=== PATIENT | male | born 1970 | race Caucasian/White ===

== ENCOUNTER 2023-07-29 14:39 | Outpatient (OUT) | payer MEDICAID, SELFPAY ==
[2023-07-29 15:12] LABS: Eosinophils Absolute Auto 0.2 10^3/uL (0.0-0.7); Eosinophils Percent Auto 3.6 % (0.9-7.0); Hematocrit 44.3 % (42.0-54.0); Hemoglobin 15.6 g/dL (14.0-18.0); Lymphocytes Absolute Auto 1.3 10^3/uL (1.2-3.8); Lymphocytes Percent Auto 32.1 % (20.5-60.0); Mean Corpuscular HGB Conc 35.2 g/dL (29.9-35.2); Mean Corpuscular Hemoglobin 34.5 pg (25.9-34.0); Mean Platelet Volume 10.2 fL (9.5-13.5); Monocytes Absolute Auto 0.3 10^3/uL (0.3-0.8); Monocytes Percent Auto 6.2 % (1.7-12.0); Neutrophils Absolute Auto 2.4 10^3/uL (1.4-6.5); Neutrophils Percent Auto 57.1 % (43.0-75.0); Platelet Count 167 10^3/uL (150-450); Red Blood Count 4.52 10^6/uL (4.70-6.10); Red Cell Distribution Width 11.9 % (11.0-15.0); White Blood Count 4.2 10^3/uL (4.0-11.0)
[2023-07-29 15:25] LABS: Erythrocyte Sedimentation Rate 13 mm/hr (<=20)
[2023-07-29 15:42] LABS: Chol HDL Ratio 3.4; Cholesterol 192 mg/dL (<=200); Estimated Average Glucose 103 mg/dL; Glycohemoglobin A1C 5.2 % (4.5-6.2); HDL Cholesterol 56 mg/dL (40-60); LDL Cholesterol Calculated 110.2 mg/dL; Thyroid Stimulating Hormone 1.625 uIU/mL (0.358-3.740); Triglycerides 129 mg/dL (<=150); Uric Acid 5.3 mg/dL (3.5-7.2); VLDL CHOLESTEROL 25.8 mg/dL
[2023-07-29 15:47] LABS: C Reactive Protein <0.2 mg/dL (<=1.0)
[2023-07-29 15:50] LABS: Prostate Specific Antigen Scrn 1.62 ng/mL (<=4.00)
[2023-07-29 16:02] LABS: Free T4 0.87 ng/dL (0.76-1.46)
[2023-07-30 09:12] LABS: Rheumatoid Factor (RF) <10.0 IU/mL (<14.0)
[2023-08-01 13:09] LABS: ANA Direct Negative (Negative)
[2023-08-06 01:07] LABS: Free Testosterone(Direct) 8.1 pg/mL (7.2-24.0); Testosterone 497 ng/dL (264-916)
== END 2023-07-29 14:40 | disposition home or self-care (01) ==
LOC: LAB 14:46
PROVIDERS: PCP Family Medicine; Visit Provider Family Medicine
DX: R53.82 Chronic fatigue, unspecified (principal); Z12.5 Encounter for screening for malignant neoplasm of prostate
CPT/HCPCS: 36415; 80061; 82306; 82607; 82746; 83036; 84402; 84403; 84439; 84443; 84481; 84550; 85025; 85652; 86140; 86430; 86431; G0103

== ENCOUNTER 2023-09-06 08:59 | Outpatient (OUT) | payer MEDICAID, SELFPAY ==
[2023-09-06 09:14] LABS: Hemoglobin 14.4 g/dL (14.0-18.0)
--- NOTE | 2023-09-06 10:11 | RT_ITS ---
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 Findings were considered accurate and reproducible. Both pre- and post-bronchodilator values utilized for spirometry. Due to software limitations, no prior studies (if performed previously) are currently available for comparison. Spirometry (based on pre-bronchodilator values): -FEV1/FVC: Normal @ 79% -FEV1: Normal @ 106% -FVC: Normal @ 104% -There is a partial bronchodilator response in FEV1 which meets >200mL increase but <12% change. Lung volumes by plethysmography: -RV: Normal @ 110% -TLC: Normal @ 107% Diffusion capacity: -DLCO: Normal @ 99 when corrected for Hb 14.4g/dL Impressions: -Essentially normal PFT. Clinical correlation required. Electronically Signed On 09-07-2023 13:24:31 EST by Adalberto Balderas
[2023-09-06 11:03] VITALS: PULSE 95; O2SAT 68
[2023-09-06] MEDS: ALBUTEROL SULFATE 2.5 MG/3 ML VIAL NEB IH (11:03)
== END 2023-09-06 09:00 | disposition home or self-care (01) ==
LOC: CARD 08:59
PROVIDERS: PCP Family Medicine; Visit Provider Family Medicine
DX: R06.09 Other forms of dyspnea (principal)
CPT/HCPCS: 36415; 85018; 94060; 94726; 94729

== ENCOUNTER 2023-11-02 07:41 | Outpatient (OUT) | payer MEDICAID, SELFPAY ==
--- NOTE | 2023-11-02 07:30 | NM_ITS ---
Patient Name: DARCY ALBARADO MR#: [id number] : 1970 Exam Date: 11/02/2023 Ordering Doctor: DR CELE COLE D.O. RADIOLOGY REPORT PROCEDURE: NM JONAS PERF SPECT REST STR COMPARISON: None. INDICATIONS: BRADYCARDIA, FATIGUE, SHORTNESS OF BREATH TECHNIQUE: Exam Description: Stress/Rest one day protocol gated SPECT Rest Imagin.6 mCi Tc-99m Cardiolite IV on 11/02/2023 Stress Imaging 30.3 mCi Tc-99m Cardiolite IV on 11/02/2023 Exercise Protocol: Shashank Heart Rate (bpm): Rest: 61 Max: 148 PMHR: 88 Blood Pressure: Rest: 142/84 Max: 194/92 Exercise Time: Minutes: 10 Seconds: 35 Stage Reached: Stage: 4 Mets 13.4 Symptoms: Rest and peak stress ECG findings were normal and the exercise portion of the study was normal per attending physician Dr. Balderas . For more details please see separate cardiac stress test report. FINDINGS: QUALITY OF STUDY: Good. PERFUSION DEFECT: None. LOCATION: N/A SIZE: N/A. SEVERITY: N/A. TYPE: N/A. WALL MOTION: Normal. LV SIZE: Normal. 91 mL. TID / TCD: None; 0.8 LVEF: Normal. Calculated EF 63%. SUMMARY: Myocardial perfusion imaging study is NORMAL. CONCLUSION: 1. Normal myocardial profusion scan 2. Normal exercise test Dictated by: Ruddy Washington MD on 11/03/2023 at 13:57 Approved by: Ruddy Washington MD on 11/03/2023 at 14:00
--- NOTE | 2023-11-02 12:51 | P.STRESS_ITS ---
Stress Test Stress Test Requesting physician: CELE COLE Procedure: Exercise Cardiolite stress test General Information: Reason for Stress Test: Bradycardia, dyspnea Cardiac History and Risk Factors: No personal history listed. Unspecified cardiac disease in [facility] - Lead Electrocardiogram: Rate & rhythm: Sinus bradycardia at a rate of 59. [place]: Normal T-waves: Flattened in III ST-segments: Normal Stress Test: Protocol: Shashank protocol was followed, with injection of Cardiolite once target heart rate was achieved. Exercise capacity: Excellent exercise capacity. Total exercise time of 10 minutes 36 seconds reached Shashank stage 4 at 4.2MPH, 16% grade, & 13.4 METs. Blood pressure: Initial: 142/84, Maximum: 194/92, Recovery: 158/84 Rate & rhythm: Patient remained in sinus rhythm during the exercise portion of the study.? During recovery, there appeared to be a mild sinus arrhythmia present. The maximum heart rate was 148, which was 88% of the maximum predicted heart rate 167. PVCs and PACs are present ST-segments & T-waves: There were no T-wave changes and no ST-segment changes when compared to the baseline EKG. Patient response/symptoms: There were no symptoms similar to the chief complaint. Dyspnea experienced was his normal. Interpretation: Normal exercise stress test without electrocardiographical evidence of ischemia. No reproducible symptoms. Sinus arrhythmia present during recovery. Cardiolite imaging interpretation will be reported separately. Clinical correlation required.?
== END 2023-11-02 07:42 | disposition home or self-care (01) ==
LOC: NM 07:41
PROVIDERS: PCP Family Medicine; Visit Provider Family Medicine
DX: R06.02 Shortness of breath (principal); R00.1 Bradycardia, unspecified
CPT/HCPCS: 78452; 93017; A9500

== ENCOUNTER 2024-01-25 14:26 | Outpatient (OUT) | payer MEDICAID, SELFPAY ==
--- NOTE | 2024-01-25 14:42 | XR_ITS ---
The [address] [address] Patient Name: DARCY ALBARADO MRN: [id number] date: 1970 Sex: M Assigned Patient Location: LAB Current Patient Location: LAB Accession/Order Number: [id number] Exam Date: 01/25/2024 14:37 Report Date: 01/26/2024 07:21 At the request of: CELE COLE Procedure: XR cervical spine 2-3V EXAMINATION: XR cervical spine 2-3V HISTORY: Cervicalgia COMPARISON: No relevant comparison available. FINDINGS: BONES: Normal alignment with no acute fracture or spondylolisthesis. Mild to moderate degenerative spondylosis and facet osteoarthropathy DISC SPACES: Moderate disc space narrowing C5-C6 PARASPINOUS: Negative. No paraspinous abnormality is seen. OTHER: Negative. XR/XR cervical spine 2-3V IMPRESSION: Moderate degenerative changes C5-C6 Electronically authenticated by: MARTI PEREZ Date: 01/26/2024 07:21
--- NOTE | 2024-01-25 14:42 | XR_ITS ---
The [address] [address] Patient Name: DARCY ALBARADO MRN: [id number] date: 1970 Sex: M Assigned Patient Location: LAB Current Patient Location: Accession/Order Number: [id number] Exam Date: 01/25/2024 14:37 Report Date: 01/26/2024 07:06 At the request of: CELE COLE Procedure: XR knee RT 3V PROCEDURE: XR knee RT 3V COMPARISON: None. HISTORY: Right Knee Pain FINDINGS: BONES:No acute fracture or dislocation. Mild osteoarthropathy with minimal marginal osteophyte formation SOFT TISSUES:Negative. No visible soft tissue swelling. EFFUSION:None visible. OTHER: Negative. XR/XR knee RT 3V IMPRESSION: Minimal osteoarthritis Electronically authenticated by: MARTI PEREZ Date: 01/26/2024 07:06
== END 2024-01-25 14:27 | disposition home or self-care (01) ==
LOC: LAB 14:27
PROVIDERS: PCP Family Medicine; Visit Provider Family Medicine
DX: M25.561 Pain in right knee (principal); M54.2 Cervicalgia; M17.11 Unilateral primary osteoarthritis, right knee
CPT/HCPCS: 72040; 73562

== ENCOUNTER 2024-02-13 20:42 | Outpatient (OUT) | payer MEDICAID, SELFPAY | END 2024-02-13 20:43 | disposition home or self-care (01) | LOC: SLEEP 20:43 | PROVIDERS: PCP Family Medicine; Visit Provider Family Medicine | DX: R06.02 Shortness of breath (principal); G47.33 Obstructive sleep apnea (adult) (pediatric) | CPT/HCPCS: 95810 ==

== ENCOUNTER 2024-02-15 09:06 | Outpatient (OUT) | payer MEDICAID, SELFPAY ==
--- NOTE | 2024-02-15 09:10 | XR_ITS ---
The [address] [address] Patient Name: DARCY ALBARADO MRN: [id number] date: 1970 Sex: M Assigned Patient Location: [facility] Current Patient Location: [facility] [place] Accession/Order Number: [id number] Exam Date: 02/15/2024 09:15 Report Date: 02/16/2024 15:52 At the request of: YUE TOMLINSON Procedure: XR chest 2V EXAM: XR chest 2V HISTORY: mild persistent asthma [id number] COMPARISON: None. TECHNIQUE: Upright PA and lateral chest x-ray FINDINGS: The heart is not enlarged and the vasculature is not distended. No acute infiltrate, effusion or pneumothorax is identified. The osseous structures are grossly intact. XR/XR chest 2V IMPRESSION: No acute infiltrate or evidence of cardiac decompensation. Comparison with a previous study may be helpful in confirming the chronicity of these findings. Electronically authenticated by: KIKI GRAJEDA Date: 02/16/2024 15:52
== END 2024-02-15 09:07 | disposition home or self-care (01) ==
LOC: RAD 09:07
PROVIDERS: PCP Family Medicine; Visit Provider Internal Medicine
DX: J45.30 Mild persistent asthma, uncomplicated (principal)
CPT/HCPCS: 71046

== ENCOUNTER 2024-03-20 20:00 | Outpatient (OUT) | payer MEDICAID, SELFPAY | END 2024-03-20 20:01 | disposition home or self-care (01) | LOC: SLEEP 03-22 09:22 | PROVIDERS: PCP Family Medicine; Visit Provider Family Medicine | DX: G47.33 Obstructive sleep apnea (adult) (pediatric) (principal) | CPT/HCPCS: 95811 ==

== ENCOUNTER 2024-05-16 09:31 | Outpatient (OUT) | payer MEDICAID, SELFPAY ==
[2024-05-16 11:01] LABS: Basophils Absolute Auto 0.1 10^3/uL (0.0-0.1); Basophils Percent Auto 0.8 % (0.2-2.0); Eosinophils Absolute Auto 0.3 10^3/uL (0.0-0.7); Eosinophils Percent Auto 5.6 % (0.9-7.0); Hematocrit 44.8 % (42.0-54.0); Hemoglobin 15.4 g/dL (14.0-18.0); Immature Granulocytes Abs Auto 0.01 10^3/uL (0.00-0.03); Immature Granulocytes Pct Auto 0.2 % (0.0-0.5); Lymphocytes Absolute Auto 2.4 10^3/uL (1.2-3.8); Lymphocytes Percent Auto 40.7 % (20.5-60.0); Mean Corpuscular HGB Conc 34.4 g/dL (29.9-35.2); Mean Corpuscular Hemoglobin 34.6 pg (25.9-34.0); Mean Corpuscular Volume 100.7 fL (80.0-94.0); Mean Platelet Volume 10.7 fL (9.5-13.5); Monocytes Absolute Auto 0.5 10^3/uL (0.3-0.8); Monocytes Percent Auto 8.5 % (1.7-12.0); Neutrophils Absolute Auto 2.6 10^3/uL (1.4-6.5); Neutrophils Percent Auto 44.2 % (43.0-75.0); Platelet Count 173 10^3/uL (150-450); Red Blood Count 4.45 10^6/uL (4.70-6.10); Red Cell Distribution Width 11.9 % (11.0-15.0); White Blood Count 5.9 10^3/uL (4.0-11.0)
[2024-05-18 21:07] LABS: Anti-MPO Antibodies <0.2 units (0.0-0.9); Anti-PR3 Antibodies <0.2 units (0.0-0.9); Cytoplasmic (C-ANCA) <1:20 titer (Neg:<1:20); Perinuclear (P-ANCA) <1:20 titer (Neg:<1:20)
[2024-05-20 14:10] LABS: Aspergillus flavus Negative (Neg:<1:1); Aspergillus fumigatus Negative (Neg:<1:1); Aspergillus niger Negative (Neg:<1:1)
[2024-05-21 04:07] LABS: Immunoglobulin E, Total 1454 IU/mL (6-495)
== END 2024-05-16 09:32 | disposition home or self-care (01) ==
LOC: LAB 09:32
PROVIDERS: PCP Family Medicine; Visit Provider Internal Medicine
DX: J45.30 Mild persistent asthma, uncomplicated (principal)
CPT/HCPCS: 36415; 82785; 83516; 85025; 86037; 86606

== ENCOUNTER 2024-07-11 09:36 | Outpatient (OUT) | payer MEDICAID, SELFPAY ==
--- NOTE | 2024-07-11 09:37 | CT_ITS ---
[address] [address] Patient Name: DARCY ALBARADO MRN: [id number] date: 1970 Sex: M Assigned Patient Location: LAB Current Patient Location: Accession/Order Number: [id number] Exam Date: 07/11/2024 09:48 Report Date: 07/13/2024 04:22 At the request of: YUE TOMLINSON Procedure: CT chest high res EXAMINATION: CT chest high res HISTORY: Chronic Cough, Pleurisy COMPARISON: No relevant comparison available. TECHNIQUE: Axial images were obtained at 10 mm intervals during inspiration and expiration in the supine and prone positions. No IV contrast given. Dose reduction techniques were achieved by using automated exposure control and/or adjustment of mA and/or kV according to patient size and/or use of iterative reconstruction technique. FINDINGS: LUNGS: No visible pulmonary disease. PLEURA: No mass, effusion, or pneumothorax. BROOKS: No mass or adenopathy. MEDIASTINUM: No mass or adenopathy. HEART: No significant enlargement or pericardial effusion.. Coronary arteries: AORTA: No aneurysm.. CHEST WALL: No mass or axillary adenopathy LIMITED ABDOMEN: Mild fatty infiltration of liver. Limited images of the upper abdomen. OTHER: Negative. CT/CT chest high res IMPRESSION: 1. No abnormal or suspicious findings of the lungs. Electronically authenticated by: YEMI NAJERA Date: 07/13/2024 04:22
[2024-07-11 10:40] LABS: Eosinophils Absolute Auto 0.1 10^3/uL (0.0-0.7); Eosinophils Percent Auto 2.7 % (0.9-7.0); Hematocrit 45.1 % (42.0-54.0); Immature Granulocytes Abs Auto 0.01 10^3/uL (0.00-0.03); Immature Granulocytes Pct Auto 0.2 % (0.0-0.5); Lymphocytes Absolute Auto 1.2 10^3/uL (1.2-3.8); Lymphocytes Percent Auto 29.1 % (20.5-60.0); Mean Corpuscular HGB Conc 35.5 g/dL (29.9-35.2); Mean Corpuscular Hemoglobin 34.3 pg (25.9-34.0); Mean Corpuscular Volume 96.6 fL (80.0-94.0); Mean Platelet Volume 10.3 fL (9.5-13.5); Monocytes Absolute Auto 0.3 10^3/uL (0.3-0.8); Monocytes Percent Auto 8.4 % (1.7-12.0); Neutrophils Absolute Auto 2.4 10^3/uL (1.4-6.5); Neutrophils Percent Auto 58.6 % (43.0-75.0); Platelet Count 155 10^3/uL (150-450); Red Blood Count 4.67 10^6/uL (4.70-6.10); Red Cell Distribution Width 11.8 % (11.0-15.0); White Blood Count 4.1 10^3/uL (4.0-11.0)
[2024-07-13 21:12] LABS: Anti-MPO Antibodies <0.2 units (0.0-0.9); Anti-PR3 Antibodies <0.2 units (0.0-0.9); Cytoplasmic (C-ANCA) <1:20 titer (Neg:<1:20); Perinuclear (P-ANCA) <1:20 titer (Neg:<1:20)
== END 2024-07-11 09:37 | disposition home or self-care (01) ==
LOC: LAB 09:36
PROVIDERS: PCP Family Medicine; Visit Provider Internal Medicine
DX: J45.30 Mild persistent asthma, uncomplicated (principal); R05.3 Chronic cough; R09.1 Pleurisy
CPT/HCPCS: 36415; 71250; 82785; 83516; 85025; 86037; 86606

== ENCOUNTER 2024-12-19 10:54 | Outpatient (OUT) | payer MEDICAID, SELFPAY ==
[2024-12-19 11:48] LABS: Alanine Aminotransferase 46 U/L (16-63); Albumin Globulin Ratio 1.4; Alkaline Phosphatase 45 U/L (46-116); Anion Gap 13.1; Aspartate Amino Transferase 20 U/L (15-37); BUN Creatinine Ratio 5.8; Bilirubin Total 0.4 mg/dL (0.2-1.0); Calcium 9.2 mg/dL (8.5-10.1); Carbon Dioxide 30.3 mmol/L (21.0-32.0); Chloride 106 mmol/L (98-107); Chol HDL Ratio 2.7; Cholesterol 131 mg/dL (<=200); Estimated GFR (African America >60 (>=60 mL/min/1.73m^2); Estimated GFR (Non-African Ame >60 (>=60 mL/min/1.73m^2); Globulin 2.9 g/dL; Glucose 83 mg/dL (74-106); HDL Cholesterol 48 mg/dL (40-60); LDL Cholesterol Calculated 58.8 mg/dL; Potassium 4.4 mmol/L (3.5-5.1); Sodium 145 mmol/L (136-145); Total Protein 6.9 g/dL (6.4-8.2); Triglycerides 121 mg/dL (<=150); VLDL CHOLESTEROL 24.2 mg/dL
[2024-12-19 12:07] LABS: Prostate Specific Antigen Scrn 2.02 ng/mL (<=4.00)
== END 2024-12-19 10:55 | disposition home or self-care (01) ==
LOC: LAB 10:55
PROVIDERS: PCP Family Medicine; Visit Provider Family Medicine
DX: E78.2 Mixed hyperlipidemia (principal); I10 Essential (primary) hypertension; Z12.5 Encounter for screening for malignant neoplasm of prostate; E55.9 Vitamin D deficiency, unspecified
CPT/HCPCS: 36415; 80053; 80061; 82306; G0103

== ENCOUNTER 2025-01-24 09:57 | Outpatient (OUT) | payer MEDICAID, SELFPAY ==
--- NOTE | 2025-01-24 10:05 | XR_ITS ---
[address] [address] Patient Name: DARCY ALBARADO MRN: [id number] date: 1970 Sex: M Assigned Patient Location: [facility] Current Patient Location: [facility] Accession/Order Number: [id number] Exam Date: 01/24/2025 12:43 Report Date: 01/24/2025 12:44 At the request of: CELE COLE DO Procedure: XR abdomen 1V Single view of abdomen COMPARISON: None HISTORY: Abdominal distention THORAX: Lung bases unremarkable. FREE AIR: Supine position limits assessment BOWEL: Mild gaseous intestinal distention. STOOL: Moderate constipation RENAL STONES: No significant stones present. VASCULAR CALCIFICATIONS: Unremarkable SOFT TISSUE: Unremarkable BONES: Unremarkable POSTSURGICAL CHANGES: None XR/XR abdomen 1V IMPRESSION: Mild gaseous intestinal distention. Mild constipation Impression dictated by: Abdi Snell M.D.01/24/2025 12:44 PM Dictation Location: [place] [address] Electronically authenticated by: [id number] Y Date: 01/24/2025 12:44
== END 2025-01-24 09:58 | disposition home or self-care (01) ==
LOC: RAD 09:58
PROVIDERS: PCP Family Medicine; Visit Provider Family Medicine
DX: R14.0 Abdominal distension (gaseous) (principal); K59.00 Constipation, unspecified
CPT/HCPCS: 74018